=== PATIENT | female | born 1975 ===

== ENCOUNTER 2018-03-31 15:41 | Inpatient (IN) | payer OTHER ==
[~2018-03-31] VITALS: Ht 167.6 cm; Wt 77.6 kg
[2018-04-01] MEDS ORDERED: PRENATAL TABLE1 EACH PO (14:56)
[2018-04-01] MEDS ORDERED: FOLIC ACID0.4 MG PO (15:01)
== END 2018-04-04 11:00 | disposition home or self-care (01) | DRG 781 ==
LOC: OB/GYN 15:41
PROC: 4A1HXCZ Monitoring of Products of Conception, Cardiac Rate, External Approach (ICD-10-PCS; principal; 2018-03-31)
DX: O21.1 Hyperemesis gravidarum with metabolic disturbance (principal)

== ENCOUNTER 2018-08-01 14:51 | Inpatient (IN) | payer OTHER ==
[~2018-08-01] VITALS: Ht 167.6 cm; Wt 81.2 kg
[~2018-08-01 14:51] MED LIST: FOLIC ACID0.4 MG PO; PRENATAL TABLE1 EACH PO
[2018-08-01] MEDS ORDERED: PROTONIX40 MG PO (16:57)
== END 2018-08-12 12:34 | DRG 786 ==
LOC: LDR 14:51 → OB/GYN 14:51 → LDR 18:17 → O/R 08-03 13:39 → OB/GYN 08-03 14:27
PROVIDERS: ADMIT Obstetrics & Gynecology
PROC: 4A1HXCZ Monitoring of Products of Conception, Cardiac Rate, External Approach (ICD-10-PCS; 2018-08-01)
PROC: BY4FZZZ Ultrasonography of Third Trimester, Single Fetus (ICD-10-PCS; 2018-08-01)
PROC: 10D00Z1 Extraction of Products of Conception, Low, Open Approach (ICD-10-PCS; principal; 2018-08-03 10:30)
PROC: B246ZZZ Ultrasonography of Right and Left Heart (ICD-10-PCS; 2018-08-09)
DX: O11.3 Pre-existing hypertension with pre-eclampsia, third trimester (principal); O60.14X0 Preterm labor third trimester with preterm delivery third trimester, not applicable or unspecified; O24.410 Gestational diabetes mellitus in pregnancy, diet controlled; O21.1 Hyperemesis gravidarum with metabolic disturbance; O82 Encounter for cesarean delivery without indication; Z3A.31 31 weeks gestation of pregnancy; Z37.0 Single live birth

== ENCOUNTER 2018-08-21 14:48 | Emergency (ER) | payer OTHER ==
[~2018-08-21] VITALS: Ht 167.6 cm; Wt 70.8 kg
[~2018-08-21 14:48] MED LIST changes: +PROTONIX40 MG PO
== END 2018-08-21 20:37 | disposition home or self-care (01) ==
LOC: ER 14:48
DX: I16.0 Hypertensive urgency (principal); I10 Essential (primary) hypertension; R51 Headache

== ENCOUNTER 2018-08-23 14:51 | Outpatient (CLI) | payer OTHER | END 2018-08-23 15:47 | disposition home or self-care (01) | LOC: LAB 14:51 | DX: Z22.322 Carrier or suspected carrier of Methicillin resistant Staphylococcus aureus (principal) ==